=== PATIENT | male | born 1960 | race African-American/Black ===

== ENCOUNTER 2018-07-27 10:17 | Emergency (ER) | payer OTHER, SELFPAY | END 2018-07-27 10:44 | disposition home or self-care (01) | LOC: BURERS 10:17 | DX: N43.3 Hydrocele, unspecified (principal); E11.9 Type 2 diabetes mellitus without complications; E78.5 Hyperlipidemia, unspecified; I10 Essential (primary) hypertension; J45.909 Unspecified asthma, uncomplicated; F17.210 Nicotine dependence, cigarettes, uncomplicated | CPT/HCPCS: 99283 ==

== ENCOUNTER 2021-11-02 10:53 | Outpatient (CLI) | payer OTHER | END 2021-11-02 10:54 | disposition home or self-care (01) | LOC: BURRAD 10:53 | PROVIDERS: ATTEND Family Medicine | DX: E11.9 Type 2 diabetes mellitus without complications (principal); K59.00 Constipation, unspecified | CPT/HCPCS: 74019 ==